=== PATIENT | male | born 1950 | race Caucasian/White ===

== ENCOUNTER 2016-08-11 18:17 | Observation (INO) | payer BC ==
[2016-08-11] MEDS ORDERED: Sodium Chloride 0.9% 1,000 ML IV ONE ×3 (18:40→20:40)
[2016-08-11] MEDS ORDERED: Sodium Chloride 0.9% 5 ML Syringe FLUSH PRN (18:40)
[2016-08-11] MEDS ORDERED: Ondansetron 4 MG/2 ML SDV IVPUSH ONE ×3 (18:40→22:21)
[2016-08-11] MEDS ORDERED: Meclizine 25 MG Tab PO ONE ×2 (18:40→22:21)
[2016-08-11] MEDS ORDERED: Ondansetron 4 MG/2 ML SDV ONE (18:41)
[2016-08-11] MEDS ORDERED: Meclizine 25 MG Tab ONE (18:42)
--- NOTE | 2016-08-11 18:46 | EDM.PDOC ---
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 BECAME DIZZINESS AND DEVELOPED HEADACHE. SYMPTOMS ARE BECOMING WORSE. SAME SYMPTOMS 4 YEARS AGO AND DIAGNOSED WITH HEAT STROKE. UNDERWENT CABG ONE YEAR AGO AND HAD 3 CARDIAC STENTS PLACED 3 MONTHS AGO. DENIES CP, SOB, TRAUMA, OR FEVER. Symptom Onset Date: 08/11/16 Symptom Onset Time: 15:30 Location: Reports: generalized Quality: Reports: pounding Severity: Reports: moderate Associated Symptoms: Reports: dizziness - Related Data Allergies/ADRs: Allergies Allergy/AdvReac Type Severity Reaction Status Date / Time Intbjzu-Bya-Ewv Reductase Allergy Muscle Verified 04/26/15 17:26 Inhibitor Aches Home Meds: Home Meds Lisinopril/Hydrochlorothiazide [Lisinopril-Hctz 20-12.5 mg Tab] 1 tab PO DAILY 04/26/15 [History] Clopidogrel [Plavix] 75 mg PO DAILY 08/11/16 [History] Fenofibrate Nanocrystallized [Fenofibrate] 145 mg PO BEDTIME 08/11/16 [History] Lisinopril 5 mg PO BEDTIME 08/11/16 [History] Metoprolol Tartrate [Lopressor] 50 mg PO BEDTIME 08/11/16 [History] Metoprolol Tartrate [Lopressor] 100 mg PO ACBREAKFAST 08/11/16 [History] Nitroglycerin [Nitrostat] 0.4 mg PO Q5M PRN 08/11/16 [History] Past Medical History HEENT History: Reports: Impaired vision Cardiovascular History: Reports: Hypertension Respiratory History: Reports: None Gastrointestinal History: Reports: None Genitourinary History: Reports: None Neurological History: Reports: None Psychiatric History: Reports: None Endocrine/Metabolic History: Reports: None Hematologic History: Reports: None Immunologic History: Reports: None Oncologic (Cancer) History: Reports: None Dermatologic History: Reports: None - Past Surgical History HEENT Surgical History: Reports: Tonsillectomy Cardiovascular Surgical History: Reports: None Respiratory Surgical History: Reports: None GI Surgical History: Reports: Appendectomy, Colonoscopy, EGD Male Surgical History: Reports: None Endocrine Surgical History: Reports: None Neurological Surgical History: Reports: None Musculoskeletal Surgical History: Reports: Knee replacement Oncologic Surgical History: Reports: None Dermatological Surgical History: Reports: None Social & Family History - Tobacco Use Smoking Status *Q: Never Smoker - Recreational Drug Use Recreational Drug Use: No ED ROS GENERAL - Review of Systems Review Of Systems: ROS reveals no pertinent complaints other than HPI. Constitutional: Reports: weakness, diaphoresis HEENT: Reports: No symptoms Respiratory: Reports: No Symptoms Cardiovascular: Reports: No symptoms Endocrine: Reports: no symptoms GI/Abdominal: Reports: Nausea : Reports: no symptoms Musculoskeletal: Reports: no symptoms Skin: Reports: no symptoms Neurological: Reports: Dizziness, Headache Hematologic/Lymphatic: Reports: no symptoms Immunologic: Reports: no symptoms - Physical Exam Exam: See Below Exam Limited By: No limitations General Appearance: alert, WD/WN, no apparent distress Eye Exam: bilateral eye: normal inspection, nystagmus (HORIZONTAL WITH HEAD TILT ) Nose: normal inspection, no blood Throat/Mouth: Normal inspection, Normal oropharynx, No airway compromise Head Exam: atraumatic, normocephalic Neck: normal inspection, supple Respiratory/Chest: no respiratory distress, lungs clear, normal breath sounds, no accessory muscle use, chest non-tender Cardiovascular: regular rate, rhythm, no murmur GI/Abdominal: soft, non tender, no organomegaly, no distention, no abnormal bruit, no mass Neuro Exam (Abbreviated): alert, oriented, CN II-XII intact, normal cognition, no motor/sensory deficits Back Exam: normal inspection Extremities: normal inspection, no pedal edema Psychiatric: normal affect, normal mood Skin Exam: Warm, Dry, Intact, Normal color, No rash EKG INTERPRETATION EKG Date: 08/11/16 Time: 18:25 Rhythm: NSR Rate (beats/min): 68 [place]: normal P-wave: present QRS: LBBB ST-T: normal Comparison: NA - no prior EKG Course - Orders/Labs/Meds Orders: Active Orders 24 hr Category Date Time Status Peripheral IV Care [RC] . DIRECTED Care 08/11/16 18:40 Ordered CBC WITH AUTO DIFF [HEME] Stat Lab 08/11/16 18:38 Ordered CKMB [CHEM] Stat Lab 08/11/16 18:38 Ordered COMPREHENSIVE METABOLIC PN,CMP [CHEM] Stat Lab 08/11/16 18:38 Ordered CREATINE KINASE,CK [CHEM] Stat Lab 08/11/16 18:38 Ordered INR,PT,PROTHROMBIN TIME [COAG] Stat Lab 08/11/16 18:38 Ordered PTT,PARTIAL THROMBOPLSTIN TIME [COAG] Stat Lab 08/11/16 18:38 Ordered TROPONIN I [CHEM] Stat Lab 08/11/16 18:38 Ordered Sodium Chloride 0.9% @ 999 MLS/HR (1000ml) Med 08/11/16 18:40 Ordered Sodium Chloride 0.9% [Normal Saline] 1,000 ml IV .BOLUS Sodium Chloride 0.9% [Syrex Flush] Med 08/11/16 18:40 Ordered 5 ml FLUSH Q8HR PRN Peripheral IV Insertion Adult [OM.PC] Routine Oth 08/11/16 18:40 Ordered Medication Orders Sodium Chloride (Normal Saline) 1,000 mls @ 999 mls/hr IV .BOLUS ONE Stop: 08/11/16 19:40 Sodium Chloride (Syrex Flush) 5 ml FLUSH Q8HR PRN PRN Reason: Keep Vein Open Meds: Medications Generic Name Dose Route Start Last Admin Trade Name Freq PRN Reason Stop Dose Admin Sodium Chloride 1,000 mls @ 999 mls/hr 08/11/16 18:40 Normal Saline IV 08/11/16 19:40 .BOLUS ONE Sodium Chloride 5 ml 08/11/16 18:40 Syrex Flush FLUSH Q8HR PRN Keep Vein Open Discontinued Medications Generic Name Dose Route Start Last Admin Trade Name Freq PRN Reason Stop Dose Admin Meclizine HCl 25 mg 08/11/16 18:40 Antivert PO 08/11/16 18:41 ONETIME ONE Ondansetron HCl 4 mg 08/11/16 18:40 Zofran IVPUSH 08/11/16 18:41 ONETIME ONE - Re-Assessments/Exams Free Text/Narrative Re-Assessment/Exam: 08/11/16 21:05 PT AFEBRILE, NONTOXIC APPEARING, VSS, SOME DIZZINESS REMAINS. DISCUSSED CASE WITH TELMA SOTO [facility]. WILL ADMIT TO OBS AND FOLLOW Departure - Departure Time of Disposition: 21:06 Disposition: Refer to Observation Condition: fair Clinical Impression: Dizziness, Dehydration Heat exhaustion Qualifiers: Encounter type: initial encounter Qualified Code(s): T67.5XXA - Heat exhaustion , unspecified, initial encounter - My Orders Last 24 Hours: My Active Orders 08/11/16 18:38 CBC WITH AUTO DIFF [HEME] Stat CKMB [CHEM] Stat COMPREHENSIVE METABOLIC PN,CMP [CHEM] Stat CREATINE KINASE,CK [CHEM] Stat INR,PT,PROTHROMBIN TIME [COAG] Stat PTT,PARTIAL THROMBOPLSTIN TIME [COAG] Stat TROPONIN I [CHEM] Stat 08/11/16 18:40 Peripheral IV Care [RC] . DIRECTED Sodium Chloride 0.9% @ 999 MLS/HR (1000ml) Sodium Chloride 0.9% [Normal Saline] 1,000 ml IV .BOLUS Sodium Chloride 0.9% [Syrex Flush] 5 ml FLUSH Q8HR PRN Peripheral IV Insertion Adult [OM.PC] Routine - Assessment/Plan Last 24 Hours: My Active Orders 08/11/16 18:38 CBC WITH AUTO DIFF [HEME] Stat CKMB [CHEM] Stat COMPREHENSIVE METABOLIC PN,CMP [CHEM] Stat CREATINE KINASE,CK [CHEM] Stat INR,PT,PROTHROMBIN TIME [COAG] Stat PTT,PARTIAL THROMBOPLSTIN TIME [COAG] Stat TROPONIN I [CHEM] Stat 08/11/16 18:40 Peripheral IV Care [RC] . DIRECTED Sodium Chloride 0.9% @ 999 MLS/HR (1000ml) Sodium Chloride 0.9% [Normal Saline] 1,000 ml IV .BOLUS Sodium Chloride 0.9% [Syrex Flush] 5 ml FLUSH Q8HR PRN Peripheral IV Insertion Adult [OM.PC] Routine Assessment:: HEAT EXHAUSTION / DIZZINESS Plan: ADMIT TO OBS FOR TELMA SOTO / [facility]
[2016-08-11 19:07] LABS: CHLORIDE,CL 103 mmol/L (98-115); SODIUM,NA 142 mmol/L (136-145)
[2016-08-11] MEDS ORDERED: Diazepam 5 MG Tab PO ONE (19:56)
[2016-08-11] MEDS ORDERED: Sodium Chloride 0.9% 1,000 ML IV SCH (22:30)
[2016-08-12 07:14] VITALS: BP 126/78
--- NOTE | 2016-08-12 10:03 | PCM.HP ---
H&P History of Present Illness - General Date of Service: 08/12/16 Admit Problem/Dx: Admission Diagnosis/Problem Admission Diagnosis/Problem Dehydration Source of Information: Patient, Old records, Provider, RN History Limitations: Reports: No limitations - History of Present Illness Initial Comments - Free Text/Narative: A 66-year-old who was admitted to [facility] into the ED due to mild heat exhaustion possibly. He was afebrile but however yesterday he stated he was working outside quite a bit became very diaphoretic and then became dizzy. He started developing a headache. He stated he had heat exhaustion about 4 years ago and there was a similar symptoms. He denied ever being diagnosed with heat stroke. He is a status post cardiac patient about a year ago with a CABG with 3 stents about 3 months ago. He denied any fever or dry hot skin. He is on hydrochlorothiazide/lisinopril along with beta arias. While in the ED Js Awad received 3000 cc of isotonic saline and he was admitted in observation for fluids throughout the night. headache Pain Score (Numeric/FACES): 10 - Related Data Allergies/Adverse Reactions: Allergies Allergy/AdvReac Type Severity Reaction Status Date / Time Ncrvmrm-Vmb-Uqo Reductase Allergy Muscle Verified 08/11/16 21:25 Inhibitor Aches Home Medications: Home Meds Clopidogrel [Plavix] 75 mg PO DAILY 08/11/16 [History] Fenofibrate Nanocrystallized [Fenofibrate] 145 mg PO BEDTIME 08/11/16 [History] Metoprolol Tartrate [Lopressor] 50 mg PO BEDTIME 08/11/16 [History] Metoprolol Tartrate [Lopressor] 100 mg PO ACBREAKFAST 08/11/16 [History] Nitroglycerin [Nitrostat] 0.4 mg PO Q5M PRN 08/11/16 [History] Lisinopril 5 mg PO BID #90 08/12/16 [Rx] Past Medical History HEENT History: Reports: Impaired vision Cardiovascular History: Reports: Hypertension, Stents Respiratory History: Reports: None Gastrointestinal History: Reports: None Genitourinary History: Reports: None Neurological History: Reports: None Psychiatric History: Reports: None Endocrine/Metabolic History: Reports: None Hematologic History: Reports: None Immunologic History: Reports: None Oncologic (Cancer) History: Reports: None Dermatologic History: Reports: None - Past Surgical History HEENT Surgical History: Reports: Tonsillectomy Other Cardiovascular Surgeries/Procedures: CABG Respiratory Surgical History: Reports: None GI Surgical History: Reports: Appendectomy, Colonoscopy, EGD Male Surgical History: Reports: None Endocrine Surgical History: Reports: None Neurological Surgical History: Reports: None Musculoskeletal Surgical History: Reports: Knee replacement Oncologic Surgical History: Reports: None Dermatological Surgical History: Reports: None Social & Family History - Tobacco Use Smoking Status *Q: Never Smoker Second Hand Smoke Exposure: No - Caffeine Use Caffeine Use: Reports: Soda - Recreational Drug Use Recreational Drug Use: No H&P Review of Systems - Review of Systems: Review Of Systems: See Below General: Reports: no symptoms HEENT: Reports: no symptoms Pulmonary: Reports: No Symptoms Cardiovascular: Reports: lightheadedness (Very slight early this morning however much improved) Gastrointestinal: Reports: No symptoms Genitourinary: Reports: no symptoms Musculoskeletal: Reports: no symptoms Skin: Reports: no symptoms Psychiatric: Reports: no symptoms Neurological: Reports: No Symptoms Hematologic/Lymphatic: Reports: no symptoms Immunologic: Reports: no symptoms Exam - Exam Exam: See Below - Vital Signs Vital Signs: Last Vital Signs Temp 97.5 F 08/12/16 07:00 Pulse 80 08/12/16 07:00 Resp 20 08/12/16 07:00 BP 126/78 08/12/16 07:00 Pulse Ox 95 08/12/16 07:00 Weight: 231 lb 6.4 oz - Exam Quality Assessment: No: supplemental oxygen General: alert, oriented, 4 HEENT: Mucosa moist & pink Neck: supple Lungs: Clear to auscultation, Normal respiratory effort Cardiovascular: regular rate, regular rhythm Abdomen: normal bowel sounds, soft Extremities: normal inspection, normal pulses Neuro Extensive - Motor, Sensory, Reflexes: CN II-XII intact, normal gait, normal reflexes Psychiatric: alert, normal affect, normal mood - Patient Data Result Diagrams: 08/11/16 18:30 08/11/16 18:30 *Q Meaningful Use (ADM) - VTE *Q VTE Criteria *Q: - Stroke *Q Stroke Criteria *Q: - AMI *Q AMI Criteria *Q: Problem List Initiated/Reviewed/Updated: Yes Orders Last 24hrs: Active Orders 24 hr Category Date Time Status Ready for Discharge [RC] PER UNIT ROUTINE Care 08/12/16 09:31 Active Clear Liquid Diet [DIET] Diet 08/12/16 Breakfast Active Sodium Chloride 0.9% [Normal Saline] 1,000 ml Med 08/11/16 22:30 Active IV ASDIRECTED Medication Orders Sodium Chloride (Normal Saline) 1,000 mls @ 125 mls/hr IV ASDIRECTED [facility] Last Admin: 08/11/16 23:23 Dose: 125 mls/hr Sodium Chloride (Syrex Flush) 5 ml FLUSH Q8HR PRN PRN Reason: Keep Vein Open Assessment/Plan Comment:: HISTORY OF PRESENT ILLNESS A 66-year-old who was admitted to [facility] [facility] into the ED due to mild heat exhaustion possibly. He was afebrile but however yesterday he stated he was working outside quite a bit became very diaphoretic and then became dizzy. He started developing a headache. He stated he had heat exhaustion about 4 years ago and there was a similar symptoms. He denied ever being diagnosed with heat stroke. He is a status post cardiac patient about a year ago with a CABG with 3 stents about 3 months ago. He denied any fever or dry hot skin. He is on hydrochlorothiazide/lisinopril along with beta arias. While in the ED Js Awad received 3000 cc of isotonic saline and he was admitted in observation for fluids throughout the night. upon patient being transferred to the floor from the ED patient had ongoing dizziness. order IV fluids of normal saline at 125 cc per hour and another 25 mg of Antivert. IMPRESSION/PLAN Heat exhaustion, mild, no signs of heat stroke rhabdomyolysis. Much improved, resolved, History of hypertension, upon discharge will discontinue hydrochlorothiazide he can stay on his lisinopril at night and will take one in the a.m. Overall plan; patient strongly desires to be discharged, I believe he is stable enough to be discharged, he is afebrile, no signs of dehydration, he feels 100% better. He will be discharged this morning to followup in the [facility]. He will monitor his blood pressure, see discharge summary for details
--- NOTE | 2016-08-12 10:09 | PCM.DCSUM1 ---
Discharge Summary - Hospital Course Brief History: This gentleman was admitted last night due to dehydration possibly heat exhaustion. He stated he was working quite hard in the sun and sweating profusely, became dizzy and mildly nauseated. He does have a cardiac history with recent stent placement. Denied chest pain. He stated he had he exhaustion about 4 years ago. Came to the ED and had 3 L of saline administered and was admitted in observation for IV hydration and close monitoring. - Discharge Data Discharge Date: 08/12/16 Discharge Disposition: Home, Self-Care 01 Condition: Good - Patient Summary/Data Complications: No complications Hospital Course: Hospital course quite uneventful other than mild dizziness upon arrival to the floor, 25 mg repeated Antivert was given and this resolved. He did start a urinate shortly after midnight, he stated he voided approximately 3 or 4 times throughout the night. I placed him on normal saline at 125 cc per hour throughout the night. He had a total of 3000 cc in the ED. His hemoglobin was slightly elevated on admission at 17.6. His BUN/creatinine ratio was approximately normal all of the labs looked good without any elevation in CK or troponin. Urine was not dark. - Patient Instructions Diet: Drink 8-10+ Glasses/Day Activity: No Strenuous Activities, Rest and Relax Today Driving: May Drive Today Showering/Bathing: May Shower Notify Provider of: Fever, Nausea and/or Vomiting Other/Special Instructions: Report any worsening dizziness, stay out of sun the next few days, rest and drink plenty of fluids, avoid diuretics such as caffeine and pop for a few days. Gatorade is good however dilute 50-50 with water - Discharge Plan Home Medications: Home Meds Clopidogrel [Plavix] 75 mg PO DAILY 08/11/16 [History] Fenofibrate Nanocrystallized [Fenofibrate] 145 mg PO BEDTIME 08/11/16 [History] Metoprolol Tartrate [Lopressor] 50 mg PO BEDTIME 08/11/16 [History] Metoprolol Tartrate [Lopressor] 100 mg PO ACBREAKFAST 08/11/16 [History] Nitroglycerin [Nitrostat] 0.4 mg PO Q5M PRN 08/11/16 [History] Lisinopril 5 mg PO BID #90 08/12/16 [Rx] Referrals: Bhavesh Mccoy NP [Nurse Practitioner] - (mid week next week) - Discharge Summary/Plan Comment DC Time >30 min.: No Discharge Summary/Plan Comment: FINAL DIAGNOSIS Dehydration, possible from heat exhaustion History hypertension, discontinue hydrochlorothiazide Overall, patient will be discharged today. He strongly desires to go home. I do not see any complications that would prohibit me from discharging him. He was given specific instructions to stay well-hydrated, rest today, avoid the sun exposure over exertion. RECOMMENDATIONS A FOLLOWUP Patient placed on lisinopril in the morning, continue lisinopril at night, discontinue hydrochlorothiazide Continue metoprolol. Check blood pressure - Patient Data Vitals - Most Recent: Last Vital Signs Temp 97.5 F 08/12/16 07:00 Pulse 80 08/12/16 07:00 Resp 20 08/12/16 07:00 BP 126/78 08/12/16 07:00 Pulse Ox 95 08/12/16 07:00 Weight - Most Recent: 231 lb 6.4 oz I&O - Last 24 hours: Intake & Output 08/11/16 08/12/16 08/12/16 22:59 06:59 14:59 Intake Total 1164 266 Balance 1164 266 Med Orders - Current: Current Medications Sodium Chloride (Normal Saline) 1,000 mls @ 125 mls/hr IV ASDIRECTED [facility] Last Admin: 08/11/16 23:23 Dose: 125 mls/hr Sodium Chloride (Syrex Flush) 5 ml FLUSH Q8HR PRN PRN Reason: Keep Vein Open Discontinued Medications Diazepam (Valium.) 5 mg PO ONETIME ONE Stop: 08/11/16 19:57 Last Admin: 08/11/16 20:03 Dose: 5 mg Sodium Chloride (Normal Saline) 1,000 mls @ 999 mls/hr IV .BOLUS ONE Stop: 08/11/16 19:40 Last Admin: 08/11/16 18:50 Dose: 999 mls/hr Sodium Chloride (Normal Saline) 1,000 mls @ 999 mls/hr IV .BOLUS ONE Stop: 08/11/16 20:00 Last Admin: 08/11/16 19:08 Dose: 999 mls/hr Sodium Chloride (Normal Saline) 1,000 mls @ 999 mls/hr IV .BOLUS ONE Stop: 08/11/16 21:40 Last Admin: 08/11/16 20:48 Dose: 999 mls/hr Meclizine HCl (Antivert) 25 mg PO ONETIME ONE Stop: 08/11/16 18:41 Last Admin: 08/11/16 18:49 Dose: 25 mg Meclizine HCl (Antivert) Confirm Administered Dose 25 mg .ROUTE .STK-MED ONE Stop: 08/11/16 18:43 Last Admin: 08/11/16 18:51 Dose: Not Given Meclizine HCl (Antivert) 25 mg PO ONETIME ONE Stop: 08/11/16 22:22 Ondansetron HCl (Zofran) 4 mg IVPUSH ONETIME ONE Stop: 08/11/16 18:41 Last Admin: 08/11/16 18:50 Dose: 4 mg Ondansetron HCl (Zofran) Confirm Administered Dose 4 mg .ROUTE .STK-MED ONE Stop: 08/11/16 18:42 Last Admin: 08/11/16 18:51 Dose: Not Given Ondansetron HCl (Zofran) 4 mg IVPUSH ONETIME ONE Stop: 08/11/16 20:41 Last Admin: 08/11/16 20:49 Dose: 4 mg Ondansetron HCl (Zofran) 4 mg IVPUSH ONETIME ONE Stop: 08/11/16 22:22 *Q Meaningful Use (DIS) - VTE *Q VTE Criteria *Q: - Stroke *Q Stroke Criteria *Q: - AMI *Q AMI Criteria *Q:
== END 2016-08-12 10:05 | disposition home or self-care (01) ==
LOC: KA.ED 18:17 → KA.MS 21:08
PROVIDERS: ADMIT Physician Assistant Surgical; ATTEND Nurse Practitioner Family
DX: T67.5XXA Heat exhaustion, unspecified, initial encounter (principal); E86.0 Dehydration; I10 Essential (primary) hypertension; R42 Dizziness and giddiness; I44.7 Left bundle-branch block, unspecified; E78.00 Pure hypercholesterolemia, unspecified; R51 Headache; Z95.0 Presence of cardiac pacemaker; Z95.1 Presence of aortocoronary bypass graft; Z90.49 Acquired absence of other specified parts of digestive tract; Z98.890 Other specified postprocedural states; Z79.02 Long term (current) use of antithrombotics/antiplatelets; Z79.899 Other long term (current) drug therapy; Z88.8 Allergy status to other drugs, medicaments and biological substances; X30.XXXA Exposure to excessive natural heat, initial encounter; Y99.0 Civilian activity done for income or pay
CPT/HCPCS: 36415; 80053; 82550; 82553; 84484; 85025; 85610; 85730; 93005; 96361; 96374; 96376; 99285; A9270; J2405; J7030; G0378

== ENCOUNTER 2020-08-13 23:48 | Emergency (ER) | payer MEDICARE, OTHER ==
[2020-08-14 00:07] VITALS: PULSE 80
[2020-08-14] MEDS: Sodium Chloride 0.9% 1,000 ML IV ONE (00:14)
--- NOTE | 2020-08-14 00:20 | EDM.PDOC ---
ED HPI GENERAL MEDICAL PROBLEM - General Chief Complaint: General Stated Complaint: Dehydration, shortness of breath Time Seen by Provider: 08/14/20 00:03 Source of Information: Reports: Patient History Limitations: Reports: No Limitations - History of Present Illness INITIAL COMMENTS - FREE TEXT/NARRATIVE: Patient presents with feeling of dehydration. He has been "dry heaving" for two days but never really vomited up much fluid. He hasn't been drinking much water today. Denies diarrhea. He saw his PCP today for routine lab work which was all good he says, except cholesterol a little high. He got some Zofran ODT from the provider and has taken 4 of them but he still vomited up water when he tried drinking about 3 hours ago. He says he just has to get IV fluids every so often and then he is good. He has had the Covid vaccine doses. - Related Data Allergies Allergy/AdvReac Type Severity Reaction Status Date / Time Volamep-Oel-Rry Reductase Allergy Muscle Verified 08/13/20 23:51 Inhibitor Aches Home Meds: Home Meds Clopidogrel [Plavix] 75 mg PO DAILY 08/11/16 [History] Fenofibrate Nanocrystallized [Fenofibrate] 145 mg PO BEDTIME 08/11/16 [History] Metoprolol Tartrate [Lopressor] 50 mg PO BEDTIME 08/11/16 [History] Metoprolol Tartrate [Lopressor] 100 mg PO ACBREAKFAST 08/11/16 [History] Nitroglycerin [Nitrostat] 0.4 mg PO Q5M PRN 08/11/16 [History] Lisinopril 5 mg PO BID #90 08/12/16 [Rx] Past Medical History HEENT History: Reports: Impaired Vision Cardiovascular History: Reports: Hypertension, Stents Respiratory History: Reports: None Gastrointestinal History: Reports: None Genitourinary History: Reports: None Neurological History: Reports: None Psychiatric History: Reports: None Endocrine/Metabolic History: Reports: None Hematologic History: Reports: None Immunologic History: Reports: None Oncologic (Cancer) History: Reports: None Dermatologic History: Reports: None - Past Surgical History Musculoskeletal Surgical History: Reports: Knee Replacement Social & Family History - Caffeine Use Caffeine Use: Reports: Soda ED ROS GENERAL - Review of Systems Review Of Systems: See Below Constitutional: Denies: Fever, Chills, Malaise, Weakness HEENT: Denies: Ear Pain, Throat Pain, Vision Change Respiratory: Denies: Cough Cardiovascular: Denies: Chest Pain, Lightheadedness, Syncope GI/Abdominal: Reports: Abdominal Pain (just sore from dry heaves), Nausea, Vomiting. Denies: Constipation, Diarrhea : Denies: Dysuria, Flank Pain Musculoskeletal: Reports: No Symptoms Skin: Denies: Cyanosis, Jaundice, Mottled, Pallor, Diaphoresis Neurological: Denies: Confusion, Dizziness, Seizure, Syncope, Trouble Speaking, Difficulty Walking Psychiatric: Reports: Anxiety. Denies: Agitation, Confusion ED EXAM, GENERAL - Physical Exam Exam: See Below Exam Limited By: No Limitations General Appearance: Alert, WD/WN, No Apparent Distress, Anxious Eye Exam: Bilateral Eye: EOMI, Normal Inspection, PERRL Ears: Normal External Exam, Hearing Grossly Normal Nose: Normal Inspection, No Blood Throat/Mouth: Normal Inspection, Normal Lips, Normal Voice, No Airway Compromise Head: Atraumatic, Normocephalic Neck: Normal Inspection, Full Range of Motion Respiratory/Chest: No Respiratory Distress, Lungs Clear, Normal Breath Sounds, No Accessory Muscle Use Cardiovascular: Regular Rate, Rhythm, No Edema, No Murmur GI/Abdominal: Normal Bowel Sounds, Soft, Non-Tender, No Organomegaly, No Distention Back Exam: Normal Inspection, Full Range of Motion. No: CVA Tenderness (L), CVA Tenderness (R) Extremities: Normal Inspection, Normal Range of Motion Neurological: Alert, Oriented, Normal Cognition, No Motor/Sensory Deficits Psychiatric: Normal Affect, Normal Mood Skin Exam: Warm, Dry, Intact, Normal Color, No Rash Course - Vital Signs Last Recorded V/S: Last Vital Signs Temp 98 F 08/14/20 00:06 Pulse 80 08/14/20 00:06 Resp 24 H 08/14/20 00:06 BP 160/85 H 08/14/20 00:06 Pulse Ox 95 08/14/20 00:06 - Orders/Labs/Meds Orders: Active Orders 24 hr Category Date Time Status Peripheral IV Care [RC] . DIRECTED Care 08/14/20 00:12 Active Sodium Chloride 0.9% [Normal Saline] 1,000 ml Med 08/14/20 00:06 Active IV .BOLUS Sodium Chloride 0.9% [Saline Flush] Med 08/14/20 00:11 Active 10 ml FLUSH Q8HR PRN Peripheral IV Insertion Adult [OM.PC] Routine Oth 08/14/20 00:11 Ordered Medication Orders Sodium Chloride (Normal Saline) 1,000 mls @ 999 mls/hr IV .BOLUS ONE Stop: 08/14/20 01:06 Last Admin: 08/14/20 00:14 Dose: 999 mls/hr Documented by: KI Sodium Chloride (Sodium Chloride 0.9% 10 Ml Syringe) 10 ml FLUSH Q8HR PRN PRN Reason: keep vein open Meds: Medications Generic Name Dose Route Start Last Admin Trade Name Freq PRN Reason Stop Dose Admin Sodium Chloride 1,000 mls @ 999 mls/hr 08/14/20 00:06 08/14/20 00:14 Normal Saline IV 08/14/20 01:06 999 mls/hr .BOLUS ONE Administration Sodium Chloride 10 ml 08/14/20 00:11 Sodium Chloride 0.9% 10 Ml Syringe FLUSH Q8HR PRN keep vein open - Re-Assessments/Exams Free Text/Narrative Re-Assessment/Exam: 08/14/20 00:23 We have saline running and patient is drinking bottled water also. Since he took a zofran 30 minutes before coming in we haven't given IV Zofran but will if needed. I discussed findings and treatment plan with patient including that if he is able to keep fluids down (by using antiemetics if needed), he can treat dehydration easily at home by drinking a quart of water comparable to the liter of saline we are giving. He wasn't aware of that. He could add electrolytes with a bottle of Gatorade if desired also. Patient stable. 08/14/20 00:42 He hasn't had his evening dose of metoprolol yet and pressures are a little high now so will give 50 mg now. 08/14/20 01:05 He is still somewhat anxious and BP moderately high so will give a dose of Lorazepam 0.5 now. He would like to try it and can have someone pick him up. Departure - Departure Time of Disposition: 01:15 Disposition: Home, Self-Care 01 Condition: Good Clinical Impression: Dehydration Nausea and vomiting Qualifiers: Vomiting type: unspecified Vomiting Intractability: non-intractable Qualified Code(s): R11.2 - Nausea with vomiting, unspecified - Discharge Information Instructions: Dehydration, Adult, [id number]-[id number] Referrals: Bhavesh Mccoy, DIGITAL PRINT OPERATOR [Primary Care Provider] - Additional Instructions: Drink 8 cups of water daily. Use your Zofran as directed if needed for nausea. Follow up with your PCP if this returns or go to ER if needed. Sepsis Event Note (ED) - Evaluation Sepsis Screening Result: No Definite Risk - Focused Exam Vital Signs: Vital Signs Temp Pulse Resp BP Pulse Ox 08/14/20 00:06 98 F 80 24 H 160/85 H 95 - My Orders Last 24 Hours: My Active Orders 08/14/20 00:06 Sodium Chloride 0.9% [Normal Saline] 1,000 ml IV .BOLUS 08/14/20 00:11 Sodium Chloride 0.9% [Saline Flush] 10 ml FLUSH Q8HR PRN Peripheral IV Insertion Adult [OM.PC] Routine 08/14/20 00:12 Peripheral IV Care [RC] . DIRECTED - Assessment/Plan Last 24 Hours: My Active Orders 08/14/20 00:06 Sodium Chloride 0.9% [Normal Saline] 1,000 ml IV .BOLUS 08/14/20 00:11 Sodium Chloride 0.9% [Saline Flush] 10 ml FLUSH Q8HR PRN Peripheral IV Insertion Adult [OM.PC] Routine 08/14/20 00:12 Peripheral IV Care [RC] . DIRECTED
[2020-08-14] MEDS: Metoprolol Tartrate 50 MG Tab PO ONE (00:45)
[2020-08-14] MEDS: Metoprolol Tartrate 50 MG Tab ONE (00:48)
[2020-08-14] MEDS: Ondansetron 4 MG/2 ML SDV IVPUSH ONE (00:50)
[2020-08-14] MEDS: Ondansetron 4 MG/2 ML SDV ONE (00:54)
[2020-08-14] MEDS: Sodium Chloride 0.9% 10 ML Syringe FLUSH PRN (00:55)
[2020-08-14] MEDS: LORazepam 0.5 MG Tab PO ONE (01:08)
[2020-08-14 01:38] VITALS: BP 151/85
== END 2020-08-14 01:20 | disposition home or self-care (01) ==
LOC: KA.ED 23:48
DX: E86.0 Dehydration (principal); R11.2 Nausea with vomiting, unspecified; I10 Essential (primary) hypertension; Z95.5 Presence of coronary angioplasty implant and graft; Z88.8 Allergy status to other drugs, medicaments and biological substances; Z79.02 Long term (current) use of antithrombotics/antiplatelets
CPT/HCPCS: 96374; 99283; 99283-25; A9270-GY; J2405; J7030

== ENCOUNTER 2021-01-04 20:14 | Emergency (ER) | payer MEDICARE, OTHER ==
[2021-01-04] MEDS ORDERED: Sodium Chloride 0.9% 10 ML Syringe FLUSH PRN (20:32)
--- NOTE | 2021-01-04 20:33 | EDM.PDOC ---
ED HPI GENERAL MEDICAL PROBLEM - General Chief Complaint: General Stated Complaint: NAUSEA, VOMITTING Time Seen by Provider: 01/04/21 20:31 Source of Information: Reports: Patient - History of Present Illness INITIAL COMMENTS - FREE TEXT/NARRATIVE: Johann, 70-year-old male, presents emergency department by private vehicle with complaints of hypertension and some nausea vomiting history. States he has been pushing himself fairly hard the past week and despite an attempt to remain well-hydrated feels similar to his previous events that required IV hydration. He states he had a few whiskeys over the weekend, nothing excessive but may have contributed to his symptoms. Tonight he noticed tingling in his fingers as he had experienced emesis after taking earlier medications today. He then took his lisinopril hydrochlorothiazide and stated within a few minutes the tingling went away and he was slightly better in his perception but still had a significantly elevated blood pressure at home, 170s over 100s. He decided at that time to present for evaluation has is treatment here has always worked in the past. He denies any fever chills, denies any exposures or risks as he is vaccinated for Covid 19. He has had no other associated illness but is battling with elevated triglycerides being placed on Zetia which she is yet to start secondary of not feeling well since after his appointment last week. He denies chest pain shortness of breath or other contributing factors with no headache but states he just feels like he is experiencing slightly elevated blood pressure. Onset: Today Duration: Day(s):, Getting Worse Location: Reports: Abdomen Quality: Reports: Dull, Pressure Severity: Moderate Improves with: Reports: Rest Worsens with: Reports: Eating (drinking fluids) Associated Symptoms: Reports: Other (Tingling fingertips). Denies: Chest Pain, Headaches Treatments PRINTING TABLE HAND: Reports: Home Treatments - Related Data Allergies Allergy/AdvReac Type Severity Reaction Status Date / Time Zyqfdiy-Qdb-Leh Reductase Allergy Muscle Verified 01/04/21 20:35 Inhibitor Aches Home Meds: Home Meds Clopidogrel [Plavix] 75 mg PO DAILY 08/11/16 [History] Metoprolol Tartrate [Lopressor] 100 mg PO BID 08/11/16 [History] Aspirin 81 mg PO DAILY 01/04/21 [History] Ezetimibe [Zetia] 10 mg PO DAILY 01/04/21 [History] Fish Oil/DHA/EPA [Fish Oil 1,200 MG] 1 cap PO BID 01/04/21 [History] Lisinopril/Hydrochlorothiazide [Lisinopril-Hctz 20-12.5 mg Tab] 1 tab PO BID 01/04/21 [History] Sildenafil [Revatio] 3 - 5 tab PO ASDIRECTED 01/04/21 [History] Past Medical History HEENT History: Reports: Impaired Vision Cardiovascular History: Reports: Hypertension, Stents Respiratory History: Reports: None Gastrointestinal History: Reports: None Genitourinary History: Reports: None Neurological History: Reports: None Psychiatric History: Reports: None Endocrine/Metabolic History: Reports: None Hematologic History: Reports: None Immunologic History: Reports: None Oncologic (Cancer) History: Reports: None Dermatologic History: Reports: None - Past Surgical History Musculoskeletal Surgical History: Reports: Knee Replacement Social & Family History - Family History Family Medical History: No Pertinent Family History - Caffeine Use Caffeine Use: Reports: None ED ROS GENERAL - Review of Systems Review Of Systems: Comprehensive ROS is negative, except as noted in HPI. ED EXAM, GENERAL - Physical Exam Exam: See Below Free Text/Narrative:: Alert, oriented, very conversive and almost to the anxious side of neutral. HEENT is negative discharge or deformity. PERRLA and with glasses present no icterus no injection. [place] moist mucous membranes with no erythema. There is no involvement of the auditory canals or tympanic membranes. Neck is soft supple with no lymphadenopathy no JVD nor bruit appreciated. Thorax is overall clear with no wheezes nor crackles. Cardiac is S1 is 2 I do not appreciate any murmur. Abdomen is soft, rotund with bowel sounds present. There is no tenderness nor rebound tenderness to palpation. There is no edema to the lower extremities. Radial pulse correlates with apical heart rate. #1 Interpretation EKG Date: 01/04/21 Time: 20:44 Rate (Beats/Min): 68 [place]: Normal P-Wave: Present QRS: Normal ST-T: Normal QT: Normal Comparison: No Change Course - Vital Signs Last Recorded V/S: Last Vital Signs Temp 97.4 F 01/04/21 20:17 Pulse 72 01/04/21 21:45 Resp 28 H 01/04/21 20:17 BP 170/103 H 01/04/21 21:45 Pulse Ox 95 01/04/21 21:45 - Orders/Labs/Meds Orders: Active Orders 24 hr Category Date Time Status Peripheral IV Care [RC] . DIRECTED Care 01/04/21 20:32 Active Sodium Chloride 0.9% [Saline Flush] Med 01/04/21 20:32 Active 10 ml FLUSH Q8HR PRN Peripheral IV Insertion Adult [OM.PC] Stat Oth 01/04/21 20:32 Ordered EKG 12 Lead [EK] Stat Ther 01/04/21 20:52 Ordered Medication Orders Sodium Chloride (Sodium Chloride 0.9% 10 Ml Syringe) 10 ml FLUSH Q8HR PRN PRN Reason: keep vein open Labs: Laboratory Tests 01/04/21 01/04/21 Range/Units 20:30 20:30 WBC 7.08 (5.00-10.00) 10^3/uL RBC 5.66 (4.50-6.00) 10^6/uL Hgb 17.3 H (13.0-17.0) g/dL Hct 49.1 (40.0-52.0) % MCV 86.7 (82.0-92.0) fL MCH 30.6 (27.0-31.0) pg MCHC 35.2 (32.0-36.0) g/dL RDW 12.8 (11.5-14.5) % Plt Count 181 (150-400) 10^3/uL MPV 10.1 (7.4-10.4) fL Immature Gran % (Auto) 0.0 (0.0-5.0) % Neut % (Auto) 55.3 (50.0-70.0) % Lymph % (Auto) 34.2 (20.0-40.0) % [place] % (Auto) 8.8 H (2.0-8.0) % Eos % (Auto) 1.4 (1.0-3.0) % Baso % (Auto) 0.3 (0.0-1.0) % Neut # (Auto) 3.92 (2.50-7.00) 10^3/uL Lymph # (Auto) 2.42 (1.00-4.00) 10^3/uL [place] # (Auto) 0.62 (0.10-0.80) 10^3/uL Eos # (Auto) 0.10 (0.10-0.30) 10^3/uL Baso # (Auto) 0.02 (0.00-0.10) 10^3/uL Immature Gran # (Auto) 0.00 (0.00-0.50) 10^3/uL Sodium 138 (136-145) mmol/L Potassium 3.5 (3.5-5.1) mmol/L Chloride 98 (98-107) mmol/L Carbon Dioxide 28.4 (21.0-32.0) mmol/L Anion Gap 15.1 H (5-15) mmol/L BUN 12 (7-18) mg/dL Creatinine 0.87 (0.51-1.17) mg/dL Est Cr Clr Drug Dosing 89.20 mL/min Estimated GFR (MDRD) > 60 mL/min Glucose 148 H (70-140) mg/dL Calcium 9.3 (8.7-10.3) mg/dL Total Bilirubin 1.1 H (0.2-1.0) mg/dL AST 29 (15-37) U/L ALT 44 (14-63) U/L Alkaline Phosphatase 77 (46-116) U/L Troponin I High Sens 5.300 (0-76.000) pg/mL Total Protein 8.1 (6.4-8.2) g/dL Albumin 3.83 (3.40-5.00) g/dL Amylase 102 (25-125) U/L Lipase 113 (73-393) U/L Meds: Medications Generic Name Dose Route Start Last Admin Trade Name Freq PRN Reason Stop Dose Admin Sodium Chloride 10 ml 01/04/21 20:32 Sodium Chloride 0.9% 10 Ml Syringe FLUSH Q8HR PRN keep vein open Discontinued Medications Generic Name Dose Route Start Last Admin Trade Name Freq PRN Reason Stop Dose Admin Sodium Chloride 1,000 mls @ 999 mls/hr 01/04/21 20:46 01/04/21 20:48 Normal Saline IV 01/04/21 21:46 999 mls/hr .BOLUS ONE Administration Metoprolol Tartrate 5 mg 01/04/21 20:58 01/04/21 21:01 Metoprolol Tartrate 5 Mg/5 Ml Sdv IVPUSH 01/04/21 20:59 5 mg ONETIME ONE Administration Ondansetron HCl 8 mg 01/04/21 20:46 01/04/21 20:48 Ondansetron 4 Mg/2 Ml Sdv IVPUSH 01/04/21 20:47 8 mg ONETIME ONE Administration - Re-Assessments/Exams Free Text/Narrative Re-Assessment/Exam: 01/04/21 22:01 States he is feeling much better at this time and willing to be discharged. He states the last time he got fluid after episode of nausea vomiting his blood pressure spiked a little bit through the course of the fluids. He states he will be fine going home and taking the remainder of his nighttime medication regimen and understands follow-up would be beneficial with his clinic provider Departure - Departure Time of Disposition: 21:56 Disposition: Home, Self-Care 01 Condition: Good Clinical Impression: Hyperglycemia Hypertension Qualifiers: Hypertension type: primary hypertension Qualified Code(s): I10 - Essential (primary) hypertension Nausea and vomiting Qualifiers: Vomiting type: unspecified Vomiting Intractability: non-intractable Qualified Code(s): R11.2 - Nausea with vomiting, unspecified - Discharge Information *PRESCRIPTION DRUG MONITORING PROGRAM REVIEWED*: Not Applicable *COPY OF PRESCRIPTION DRUG MONITORING REPORT IN PATIENT RICCO: Not Applicable Instructions: Nausea, Adult, Hyperglycemia, [id number] Referrals: Bhavesh Mccoy VAULT WORKER [Primary Care Provider] - Forms: ED Department Discharge Additional Instructions: Avoid high sugar drinks and foods. Maintain good fluid intake. Continue your medications as directed. Rest tonight and resume activity tomorrow as able. Contact your clinic for recheck as your blood pressure medications may require adjusting. Return to emergency department as needed. Sepsis Event Note (ED) - Evaluation Sepsis Screening Result: No Definite Risk - Focused Exam Vital Signs: Vital Signs Temp Pulse Pulse Resp BP BP Pulse Ox 01/04/21 21:45 72 170/103 H 95 01/04/21 21:31 68 160/101 H 93 L 01/04/21 21:15 62 160/96 H 92 L 01/04/21 21:13 67 172/98 H 91 L 01/04/21 21:05 68 166/106 H 95 01/04/21 21:01 73 168/100 H 01/04/21 21:00 74 168/100 H 92 L 01/04/21 20:45 71 174/110 H 94 L 01/04/21 20:30 74 179/112 H 97 01/04/21 20:17 97.4 F 79 28 H 186/109 H 98 - Problem List & Annotations (1) Hypertension SNOMED Code(s): 07126663 Code(s): I10 - ESSENTIAL (PRIMARY) HYPERTENSION Status: Chronic Priority: Medium Current Visit: Yes Qualifiers: Hypertension type: primary hypertension Qualified Code(s): I10 - Essential (primary) hypertension (2) Nausea and vomiting SNOMED Code(s): 99828154 Code(s): R11.2 - NAUSEA WITH VOMITING, UNSPECIFIED Status: Acute Priority: High Current Visit: Yes Qualifiers: Vomiting type: unspecified Vomiting Intractability: non-intractable Qualified Code(s): R11.2 - Nausea with vomiting, unspecified (3) Hyperglycemia SNOMED Code(s): 89053075 Code(s): R73.9 - HYPERGLYCEMIA, UNSPECIFIED Status: Acute Priority: Medium Current Visit: Yes - Problem List Review Problem List Initiated/Reviewed/Updated: Yes - My Orders Last 24 Hours: My Active Orders 01/04/21 20:32 Peripheral IV Care [RC] . DIRECTED Sodium Chloride 0.9% [Saline Flush] 10 ml FLUSH Q8HR PRN Peripheral IV Insertion Adult [OM.PC] Stat 01/04/21 20:52 EKG 12 Lead [EK] Stat - Assessment/Plan Last 24 Hours: My Active Orders 01/04/21 20:32 Peripheral IV Care [RC] . DIRECTED Sodium Chloride 0.9% [Saline Flush] 10 ml FLUSH Q8HR PRN Peripheral IV Insertion Adult [OM.PC] Stat 01/04/21 20:52 EKG 12 Lead [EK] Stat Plan: Avoid high sugar drinks and foods. Maintain good fluid intake. Continue your medications as directed. Rest tonight and resume activity tomorrow as able. Contact your clinic for recheck as your blood pressure medications may require adjusting. Return to emergency department as needed.
[2021-01-04] MEDS ORDERED: Sodium Chloride 0.9% 1,000 ML IV ONE (20:46)
[2021-01-04] MEDS ORDERED: Ondansetron 4 MG/2 ML SDV IVPUSH ONE (20:46)
[2021-01-04] MEDS ORDERED: Metoprolol Tartrate 5 MG/5 ML SDV IVPUSH ONE (20:58)
[2021-01-04 21:10] LABS: ANION GAP 15.1 mmol/L (5-15); CHLORIDE,CL 98 mmol/L (98-107); SODIUM,NA 138 mmol/L (136-145)
[2021-01-04 21:58] VITALS: BP 170/103; PULSE 72
== END 2021-01-04 22:02 | disposition home or self-care (01) ==
LOC: KA.ED 20:14
DX: I10 Essential (primary) hypertension (principal); R73.9 Hyperglycemia, unspecified; Z88.8 Allergy status to other drugs, medicaments and biological substances; Z79.82 Long term (current) use of aspirin; Z79.02 Long term (current) use of antithrombotics/antiplatelets; Z79.899 Other long term (current) drug therapy
CPT/HCPCS: 36415; 80053; 82150; 83690; 84484; 85025; 93005; 96374; 96375; 99284; 99284-25; J2405; J3490; J7030

== ENCOUNTER 2021-01-05 15:54 | Emergency (ER) | payer MEDICARE, OTHER ==
[2021-01-05] MEDS ORDERED: Sodium Chloride 0.9% 10 ML Syringe FLUSH PRN (16:01)
[2021-01-05] MEDS ORDERED: Sodium Chloride 0.9% 1,000 ML IV ONE (16:02)
[2021-01-05] MEDS ORDERED: Ondansetron 4 MG/2 ML SDV IVPUSH ONE (16:02)
--- NOTE | 2021-01-05 16:22 | EDM.PDOC ---
ED HPI GENERAL MEDICAL PROBLEM - General Chief Complaint: General Stated Complaint: NAUSEA,VOMITING Time Seen by Provider: 01/05/21 16:10 Source of Information: Reports: Patient History Limitations: Reports: No Limitations - History of Present Illness INITIAL COMMENTS - FREE TEXT/NARRATIVE: Jozef, 70-year-old male, presents today with continued nausea and some slight elevation in his blood pressure. States that he followed instructions other than he did not follow-up in the clinic with his provider today. No other factors are contributing, no new exposures, denies chest pain or shortness of breath. Was seen by myself in the ED here last night , less than 20 hours prior to this visit. Onset: Today, Sudden - Related Data Allergies Allergy/AdvReac Type Severity Reaction Status Date / Time [id number] Reductase Allergy Muscle Verified 01/05/21 16:26 Inhibitor Aches Home Meds: Home Meds Clopidogrel [Plavix] 75 mg PO DAILY 08/11/16 [History] Metoprolol Tartrate [Lopressor] 100 mg PO BID 08/11/16 [History] Aspirin 81 mg PO DAILY 01/04/21 [History] Ezetimibe [Zetia] 10 mg PO DAILY 01/04/21 [History] Fish Oil/DHA/EPA [Fish Oil 1,200 MG] 1 cap PO BID 01/04/21 [History] Lisinopril/Hydrochlorothiazide [Lisinopril-Hctz 20-12.5 mg Tab] 1 tab PO BID 01/04/21 [History] Sildenafil [Revatio] 3 - 5 tab PO ASDIRECTED 01/04/21 [History] Past Medical History HEENT History: Reports: Impaired Vision Cardiovascular History: Reports: Hypertension, Stents Respiratory History: Reports: None Gastrointestinal History: Reports: None Genitourinary History: Reports: None Neurological History: Reports: None Psychiatric History: Reports: None Endocrine/Metabolic History: Reports: None Hematologic History: Reports: None Immunologic History: Reports: None Oncologic (Cancer) History: Reports: None Dermatologic History: Reports: None - Infectious Disease History Infectious Disease History: Reports: Chicken Pox - Past Surgical History HEENT Surgical History: Reports: Tonsillectomy Cardiovascular Surgical History: Reports: Coronary Artery Bypass Respiratory Surgical History: Reports: None GI Surgical History: Reports: Appendectomy, Colonoscopy, EGD Male Surgical History: Reports: None Endocrine Surgical History: Reports: None Neurological Surgical History: Reports: None Musculoskeletal Surgical History: Reports: Knee Replacement Oncologic Surgical History: Reports: None Dermatological Surgical History: Reports: None Social & Family History - Family History Family Medical History: No Pertinent Family History - Caffeine Use Caffeine Use: Reports: Soda ED ROS GENERAL - Review of Systems Review Of Systems: Comprehensive ROS is negative, except as noted in HPI. ED EXAM, GENERAL - Physical Exam Exam: See Below Free Text/Narrative:: Alert oriented in no acute distress. HEENT is negative discharge or deformity. PERRLA no icterus no injection. [place] moist mucous membranes. Neck soft supple no rigidity. Thorax is clear no wheezes nor crackles are noted. Cardiac is S1-S2 with no noted murmur. No flank pain, no abdominal discomfort with bowel sounds being normal. No edema to the extremities. Palpation of the abdomen induces worsening nausea similar to his affect last night. It is noted that I saw him less than 24 hours ago for the same symptoms and he stated feeling well when first being discharged going home but today symptoms somewhat recurred. #1 Interpretation EKG Date: 01/05/21 Time: 16:20 Rhythm: NSR Rate (Beats/Min): 61 [place]: Normal P-Wave: Present QRS: Normal ST-T: Normal QT: Normal Comparison: No Change (Compared yesterday) Course - Vital Signs Last Recorded V/S: Last Vital Signs Temp 97 F 01/05/21 18:55 Pulse 58 L 01/05/21 19:15 Resp 15 01/05/21 19:15 BP 148/87 H 01/05/21 19:15 Pulse Ox 95 01/05/21 19:15 - Orders/Labs/Meds Orders: Active Orders 24 hr Category Date Time Status Peripheral IV Insertion Adult [OM.PC] Stat Oth 01/05/21 16:02 Ordered EKG 12 Lead [EK] Stat Ther 01/05/21 16:00 Ordered Labs: Laboratory Tests 01/05/21 01/05/21 Range/Units 16:15 16:15 WBC 8.75 (5.00-10.00) 10^3/uL RBC 6.09 H (4.50-6.00) 10^6/uL Hgb 18.8 H D (13.0-17.0) g/dL Hct 52.8 H (40.0-52.0) % MCV 86.7 (82.0-92.0) fL MCH 30.9 (27.0-31.0) pg MCHC 35.6 (32.0-36.0) g/dL RDW 12.7 (11.5-14.5) % Plt Count 198 (150-400) 10^3/uL MPV 10.4 (7.4-10.4) fL Immature Gran % (Auto) 0.1 (0.0-5.0) % Neut % (Auto) 64.3 (50.0-70.0) % Lymph % (Auto) 27.1 (20.0-40.0) % [place] % (Auto) 7.2 (2.0-8.0) % Eos % (Auto) 1.0 (1.0-3.0) % Baso % (Auto) 0.3 (0.0-1.0) % Neut # (Auto) 5.62 (2.50-7.00) 10^3/uL Lymph # (Auto) 2.37 (1.00-4.00) 10^3/uL [place] # (Auto) 0.63 (0.10-0.80) 10^3/uL Eos # (Auto) 0.09 L (0.10-0.30) 10^3/uL Baso # (Auto) 0.03 (0.00-0.10) 10^3/uL Immature Gran # (Auto) 0.01 (0.00-0.50) 10^3/uL Sodium 137 (136-145) mmol/L Potassium 4.0 (3.5-5.1) mmol/L Chloride 100 (98-107) mmol/L Carbon Dioxide 31.7 (21.0-32.0) mmol/L Anion Gap 9.3 (5-15) mmol/L BUN 13 (7-18) mg/dL Creatinine 0.95 (0.51-1.17) mg/dL Est Cr Clr Drug Dosing TNP Estimated GFR (MDRD) > 60 mL/min Glucose 123 (70-140) mg/dL Calcium 8.7 (8.7-10.3) mg/dL Total Bilirubin 1.4 H (0.2-1.0) mg/dL AST 25 (15-37) U/L ALT 45 (14-63) U/L Alkaline Phosphatase 75 (46-116) U/L Troponin I High Sens < 4.000 (0-76.000) pg/mL C-Reactive Protein < 0.4 (0.0-0.9) mg/dL Total Protein 7.6 (6.4-8.2) g/dL Albumin 3.47 (3.40-5.00) g/dL Amylase 74 (25-125) U/L Lipase 82 (73-393) U/L Meds: Medications Discontinued Medications Generic Name Dose Route Start Last Admin Trade Name Freq PRN Reason Stop Dose Admin Hydralazine HCl 10 mg 01/05/21 18:49 01/05/21 18:58 Hydralazine 20 Mg/Ml Sdv IVPUSH 01/05/21 18:50 10 mg ONETIME ONE Administration Hydroxyzine HCl 100 mg 01/05/21 17:57 01/05/21 18:14 Hydroxyzine Hcl 100 Mg/2 Ml Sdv IM 01/05/21 17:58 Not Given ONETIME ONE Hydroxyzine HCl 100 mg 01/05/21 18:13 01/05/21 18:14 Hydroxyzine Hcl 100 Mg/2 Ml Sdv IM 01/05/21 18:14 100 mg ONETIME ONE Administration Sodium Chloride 1,000 mls @ 999 mls/hr 01/05/21 16:02 01/05/21 16:22 Normal Saline IV 01/05/21 17:02 999 mls/hr .BOLUS ONE Administration Sodium Chloride 1,000 mls @ 150 mls/hr 01/05/21 18:00 01/05/21 18:05 Normal Saline IV 150 mls/hr ASDIRECTED ARMEN Administration Ondansetron HCl 8 mg 01/05/21 16:02 01/05/21 16:24 Ondansetron 4 Mg/2 Ml Sdv IVPUSH 01/05/21 16:03 8 mg ONETIME ONE Administration Sodium Chloride 10 ml 01/05/21 16:01 Sodium Chloride 0.9% 10 Ml Syringe FLUSH Q8HR PRN keep vein open Departure - Departure Time of Disposition: 19:26 Disposition: Home, Self-Care 01 Condition: Good Clinical Impression: Hyperglycemia, Dizziness Nausea and vomiting Qualifiers: Vomiting type: unspecified Vomiting Intractability: non-intractable Qualified Code(s): R11.2 - Nausea with vomiting, unspecified Hypertension Qualifiers: Hypertension type: primary hypertension Qualified Code(s): I10 - Essential (primary) hypertension - Discharge Information *PRESCRIPTION DRUG MONITORING PROGRAM REVIEWED*: Not Applicable *COPY OF PRESCRIPTION DRUG MONITORING REPORT IN PATIENT RICCO: Not Applicable Instructions: Nausea, Adult, Dizziness, [id number], Managing Your Hypertension Referrals: Bhavesh Mccoy [facility] [Primary Care Provider] - Forms: ED Department Discharge Additional Instructions: You need to go home and rest continue your medications as directed. The treatment we gave you here today significantly improved your blood pressure, and with that I would like you to take your lisinopril hydrochlorothiazide 20 mg/12.5 twice daily starting tonight and continuing until you get an appointment to be rechecked in the clinic. Continue to avoid high sugars drinks and sweets as today your glucose was better. Advance your diet as tolerated, slowly adding foods. Continue monitoring your blood pressure at home avoiding irritants to the stomach as well as salt which will irritate your blood pressure. Call your clinic in the morning to get rechecked this week before the weekend if possible. Return to the emergency department if needed. Sepsis Event Note (ED) - Focused Exam Vital Signs: Vital Signs Temp Pulse Resp BP Pulse Ox 01/05/21 19:15 58 L 15 148/87 H 95 01/05/21 19:10 60 14 163/88 H 95 01/05/21 19:00 62 15 155/106 H 95 01/05/21 18:55 97 F 60 13 160/107 H 96 01/05/21 18:43 54 L 13 182/102 H 97 01/05/21 18:13 61 24 H 179/102 H 98 01/05/21 18:05 63 174/110 H 01/05/21 16:07 96.7 F L 62 20 158/97 H 99 - Problem List & Annotations (1) Nausea and vomiting SNOMED Code(s): 95415195 Code(s): R11.2 - NAUSEA WITH VOMITING, UNSPECIFIED Status: Acute Priority: High Qualifiers: Vomiting type: unspecified Vomiting Intractability: non-intractable Qualified Code(s): R11.2 - Nausea with vomiting, unspecified (2) Hypertension SNOMED Code(s): 82350130 Code(s): I10 - ESSENTIAL (PRIMARY) HYPERTENSION Status: Chronic Priority: Medium Qualifiers: Hypertension type: primary hypertension Qualified Code(s): I10 - Essential (primary) hypertension (3) Hyperglycemia SNOMED Code(s): 77448136 Code(s): R73.9 - HYPERGLYCEMIA, UNSPECIFIED Status: Acute Priority: Medium (4) Dizziness SNOMED Code(s): 972120524, 450667228 Code(s): R42 - DIZZINESS AND GIDDINESS Status: Acute Priority: High - Problem List Review Problem List Initiated/Reviewed/Updated: Yes - My Orders Last 24 Hours: My Active Orders 01/05/21 16:00 EKG 12 Lead [EK] Stat 01/05/21 16:02 Peripheral IV Insertion Adult [OM.PC] Stat - Assessment/Plan Last 24 Hours: My Active Orders 01/05/21 16:00 EKG 12 Lead [EK] Stat 01/05/21 16:02 Peripheral IV Insertion Adult [OM.PC] Stat Plan: You need to go home and rest continue your medications as directed. The treatment we gave you here today significantly improved your blood pressure, and with that I would like you to take your lisinopril hydrochlorothiazide 20 mg/12.5 twice daily starting tonight and continuing until you get an appointment to be rechecked in the clinic. Continue to avoid high sugars drinks and sweets as today your glucose was better. Advance your diet as tolerated, slowly adding foods. Continue monitoring your blood pressure at home avoiding irritants to the stomach as well as salt which will irritate your blood pressure. Call your clinic in the morning to get rechecked this week before the weekend if possible. Return to the emergency department if needed.
--- NOTE | 2021-01-05 16:47 | CR ---
[id number] RAD/RAD Chest PA or AP 1V EXAM: RAD Chest PA or AP 1V INDICATION: NAUSEA, EMESIS. COMPARISON: None. DISCUSSION: Median sternotomy wires. Cardiomediastinal silhouette is normal in size and contour. No infiltrate, effusion, pneumothorax, or edema. IMPRESSION: No acute cardiopulmonary abnormality. Dante Jung DO 01/05/21 [id number] Thank you for allowing us to participate in the care of your patient.
[2021-01-05 17:51] LABS: ANION GAP 9.3 mmol/L (5-15); CHLORIDE,CL 100 mmol/L (98-107); SODIUM,NA 137 mmol/L (136-145)
[2021-01-05] MEDS ORDERED: hydrOXYzine HCL 100 MG/2 ML SDV IM ONE ×2 (17:57→18:13)
[2021-01-05] MEDS ORDERED: Sodium Chloride 0.9% 1,000 ML IV SCH (18:00)
[2021-01-05] MEDS ORDERED: hydrALAZINE 20 MG/ML SDV IVPUSH ONE (18:49)
[2021-01-05 19:20] VITALS: BP 148/87; PULSE 58
== END 2021-01-05 19:30 | disposition home or self-care (01) ==
LOC: KA.ED 15:54
DX: I10 Essential (primary) hypertension (principal); R73.9 Hyperglycemia, unspecified; R42 Dizziness and giddiness; R11.2 Nausea with vomiting, unspecified; Z88.8 Allergy status to other drugs, medicaments and biological substances; Z79.02 Long term (current) use of antithrombotics/antiplatelets; Z79.82 Long term (current) use of aspirin; Z79.899 Other long term (current) drug therapy
CPT/HCPCS: 36415; 71045; 80053; 82150; 83690; 84484; 85025; 86140; 93005; 96372; 96374; 96375; 99284; 99284-25; J0360; J2405; J3410; J7030

== ENCOUNTER 2022-09-27 08:35 | Day surgery (SDC) | payer MEDICARE, OTHER ==
[2022-09-27] MEDS ORDERED: Propofol 200 MG/20 ML SDV IV ONE (08:36)
[2022-09-27] MEDS ORDERED: Sodium Chloride 0.9% 10 ML Syringe FLUSH PRN (09:00)
[2022-09-27] MEDS ORDERED: Midazolam 1 MG/ML 2 ML SDV ONE (09:25)
[2022-09-27] MEDS ORDERED: Propofol 200 MG/20 ML SDV ONE ×2 (09:25→10:31)
[2022-09-27] MEDS: Lactated Ringers 1,000 ML IV SCH (09:34)
[2022-09-27 13:18] VITALS: BP 138/94; PULSE 77
== END 2022-09-27 12:07 | disposition home or self-care (01) ==
LOC: KA.SDS 08:35
PROVIDERS: ATTEND Surgery
DX: Z86.010 Personal history of colon polyps (principal); D12.7 Benign neoplasm of rectosigmoid junction; D12.2 Benign neoplasm of ascending colon; D12.4 Benign neoplasm of descending colon; D12.3 Benign neoplasm of transverse colon; K64.4 Residual hemorrhoidal skin tags; K64.8 Other hemorrhoids; Z79.899 Other long term (current) drug therapy; Z88.8 Allergy status to other drugs, medicaments and biological substances
CPT/HCPCS: 00812; J2250; J2704; J7120